=== PATIENT | female | born 1980 | race American Indian/Alaskan Native ===

== ENCOUNTER 2017-03-02 01:40 | Inpatient (IN) | payer OTHER, MEDICAID ==
[2017-03-02] MEDS ORDERED: MINERAL OIL PO PRN (02:29)
[2017-03-02] MEDS ORDERED: SUBLIMAZE IV PRN (02:29)
[2017-03-02] MEDS ORDERED: BRETHINE IVP PRN (02:29)
[2017-03-02] MEDS ORDERED: BRETHINE SUB-Q PRN (02:29)
[2017-03-02] MEDS ORDERED: ePHEDrine SULFATE IV PRN ×2 (02:29→04:27)
[2017-03-02] MEDS ORDERED: ZOFRAN IV PRN ×2 (02:29→12:05)
[2017-03-02] MEDS ORDERED: XYLOCAINE 2% INFILTRATI ONE (02:29)
[2017-03-02] MEDS ORDERED: PITOCin/NS 20 UNIT/1000ML DRIP 20 UNITS/1,000 ML BAG IV SCH (03:00)
[2017-03-02] MEDS ORDERED: PITOCin/NS 30 UNIT/500ML 30 UNITS/500 ML BAG IV SCH (03:00)
[2017-03-02 03:43] LABS: Hematocrit 33.3 % (30.3-42.9); Hemoglobin 10.7 gm/dl (10.1-14.3); Mean Corpuscular HGB Conc 32 % (30-34); Mean Corpuscular Volume 71 fl (79-97); Platelet Count 264 K/mm3 (140-440); Red Blood Count 4.71 M/mm3 (3.65-5.03); Red Cell Distribution Width 14.7 % (13.2-15.2); White Blood Count 8.1 K/mm3 (4.5-11.0)
[2017-03-02] MEDS: LACTATED RINGERS 1,000 ML IV SCH ×3 (03:45→08:24)
[2017-03-02 03:52] LABS: Mean Corpuscular Hemoglobin 23 pg (28-32)
[2017-03-02] MEDS ORDERED: ePHEDrine SULFATE ONE (03:59)
[2017-03-02] MEDS ORDERED: NARCAN 2 MG/2 ML IV PRN (04:27)
--- NOTE | 2017-03-02 04:27 | Anesthesia Consultation ---
Anesthesia Consult and Med Hx Date of service: 03/02/17 - Airway Anesthetic Teeth Evaluation: Good ROM Head & Neck: Adequate Mental/Hyoid Distance: Adequate Mallampati Class: Class II Intubation Access Assessment: Good - Pulmonary Exam CTA: Yes - Cardiac Exam Cardiac Exam: No Murmur - Pre-Operative Health Status ASA Pre-Surgery Classification: ASA2 Proposed Anesthetic Plan: Epidural - Pulmonary Hx Asthma: No COPD: No Hx Pneumonia: No - Cardiovascular System Hx Hypertension: No - Central Nervous System Hx Seizures: No Hx Psychiatric Problems: No - Endocrine Hx Renal Disease: No Hx End Stage Renal Disease: No Hx Hypothyroidism: No Hx Hyperthyroidism: No - Hematic Hx Anemia: Yes Hx Sickle Cell Disease: No - Other Systems Hx Alcohol Use: No
[2017-03-02] MEDS: fentaNYL-BUPIV 2 MCG/ML-0.125% 200 MCG/100 ML BAG EPIDURAL SCH ×3 (04:40→12:10)
--- NOTE | 2017-03-02 06:59 | History and Physical Report ---
History of Present Illness Date of examination: 03/02/17 Date of admission: 03/02/17 03:07 Chief complaint: Painful contractions History of present illness: 36 y/o at 39+4 wks presents in active labour, she is a [facility] care has been unremarkable She is GBS neg Past History Past Medical History: no pertinent history Past Surgical History: no surgical history [employer] History: herpes. denies: chlamydia, fibroids, gonorrhea, hepatitis B, hepatitis C, HIV, syphilis, trichomonas Social history: full code. denies: smoking, alcohol abuse, prescription drug abuse, IV drug use - Obstetrical History Expected Date of Delivery: 03/04/17 Actual Gestation: 39 Week(s) 5 Day(s) : 3 Para: 1 Number of Living Children: 1 Medications and Allergies Allergies Allergy/AdvReac Type Severity Reaction Status Date / Time No Known Allergies Allergy Verified 03/02/17 02:40 Active Meds: Active Medications Fentanyl (Sublimaze) 100 mcg IV Q2H PRN PRN Reason: Labor Pain Lactated Ringer's (Lactated Ringers) 1,000 mls @ 125 mls/hr IV DIRECT EFREN Last Admin: 03/02/17 04:31 Dose: 125 mls/hr Oxytocin/Sodium Chloride (Pitocin/Ns 20 Unit/1000ml Drip) 20 units in 1,000 mls @ 125 mls/hr IV DIRECT EFREN Oxytocin/Sodium Chloride (Pitocin/Ns 30 Unit/500ml) 30 units in 500 mls @ 1 mls /hr IV TITR EFREN; 1 MILLIUNITS/MIN PRN Reason: Protocol Fentanyl/Bupivacaine/Sodium Chlor (Fentanyl-Bupiv 2 Mcg/Ml-0.125%) 200 mcg in 100 mls @ 12 mls/hr EPIDURAL TITR EFREN PRN Reason: Protocol Last Admin: 03/02/17 04:40 Dose: 12 mls/hr Mineral Oil (Mineral Oil) 30 ml PO QHS PRN PRN Reason: Constipation Ondansetron HCl (Zofran) 4 mg IV Q8H PRN PRN Reason: Nausea And Vomiting Review of Systems Constitutional: no fever, no chills Cardiovascular: no chest pain, no orthopnea, no edema, no syncope, no lightheadedness, no shortness of breath Respiratory: no cough with sputum, no shortness of breath, no dyspnea on exertion Gastrointestinal: no abdominal pain, no nausea, no vomiting Genitourinary: no vaginal bleeding, no vaginal discharge, no leakage of fluid - Vital Signs Vital signs: Vital Signs Pulse BP 91 H 124/76 03/02/17 01:48 03/02/17 01:48 Temp Pulse Resp BP Pulse Ox 98.8 F 89 18 119/73 98 03/02/17 03:14 03/02/17 06:50 03/02/17 03:14 03/02/17 06:39 03/02/17 06:50 - Physical Exam Cardiovascular: Regular rate, Normal S1, Normal S2 Lungs: Positive: Clear to auscultation, Normal air movement Abdomen: Positive: normal appearance, soft. Negative: distention, tenderness, guarding, rigidity Genitourinary (Female): Positive: normal external genitalia Uterus: Positive: enlarged (EFW ~ 3400) Adnexa: both: normal Extremities: Positive: normal - Obstetrical FHR: category 1 Cervical Dilatation: 7 (Per RN exam) Results Result Diagrams: 03/02/17 03:25 Abnormal lab results 03/02/17 Range/Units 03:25 MCV 71 L (79-97) fl MCH 23 L (28-32) pg All other labs normal. Assessment and Plan A: 36 y/o at 39+5 wks in active labor -Cat 1 tracing P: -Continue present care -Anticipate - Patient Problems (1) 39 weeks gestation of Current Visit: Yes Status: Acute (2) Active labor at term Current Visit: Yes Status: Acute
--- NOTE | 2017-03-02 08:41 | Progress Note ---
Assessment and Plan A: 36 y/o at 39+5 wks in active labor -Cat 1 tracing P: -Continue present care -Anticipate - Patient Problems (1) 39 weeks gestation of Current Visit: Yes Status: Acute (2) Active labor at term Current Visit: Yes Status: Acute Subjective - Subjective Date of service: 03/02/17 Interval history: Patient now 9 cm dilated Patient reports: movement normal, contractions, no loss of fluid, no vaginal bleeding Objective - Vital Signs Vital Signs: Vital Signs - 12hr 03/02/17 03/02/17 03/02/17 01:48 03:06 03:07 Temperature Pulse Rate 91 H 84 85 Respiratory Rate Blood Pressure 124/76 119/73 O2 Sat by Pulse 98 Oximetry 03/02/17 03/02/17 03/02/17 03:11 03:14 03:16 Temperature 98.8 F Pulse Rate 85 91 H Respiratory 18 Rate Blood Pressure O2 Sat by Pulse 100 97 Oximetry 03/02/17 03/02/17 03/02/17 03:21 03:26 03:31 Temperature Pulse Rate 90 100 H 96 H Respiratory Rate Blood Pressure O2 Sat by Pulse 99 99 100 Oximetry 03/02/17 03/02/17 03/02/17 03:36 03:42 03:46 Temperature Pulse Rate 86 86 83 Respiratory Rate Blood Pressure O2 Sat by Pulse 99 100 100 Oximetry 03/02/17 03/02/17 03/02/17 03:51 03:56 04:02 Temperature Pulse Rate 86 83 110 H Respiratory Rate Blood Pressure O2 Sat by Pulse 100 99 84 Oximetry 03/02/17 03/02/17 03/02/17 04:05 04:06 04:07 Temperature Pulse Rate 87 89 91 H Respiratory Rate Blood Pressure 122/77 119/80 O2 Sat by Pulse 94 94 Oximetry 03/02/17 03/02/17 03/02/17 04:09 04:11 04:12 Temperature Pulse Rate 88 80 84 Respiratory Rate Blood Pressure 122/79 119/79 O2 Sat by Pulse 94 Oximetry 03/02/17 03/02/17 03/02/17 04:13 04:15 04:16 Temperature Pulse Rate 90 81 87 Respiratory Rate Blood Pressure 123/80 119/76 O2 Sat by Pulse 98 Oximetry 03/02/17 03/02/17 03/02/17 04:17 04:19 04:21 Temperature Pulse Rate 82 91 H 78 Respiratory Rate Blood Pressure 116/72 123/72 114/64 O2 Sat by Pulse 70 L Oximetry 03/02/17 03/02/17 03/02/17 04:23 04:25 04:26 Temperature Pulse Rate 117 H 96 H 83 Respiratory Rate Blood Pressure 102/50 74/39 91/56 O2 Sat by Pulse 98 Oximetry 03/02/17 03/02/17 03/02/17 04:29 04:30 04:31 Temperature Pulse Rate 86 96 H 93 H Respiratory Rate Blood Pressure 93/55 100/58 O2 Sat by Pulse 97 Oximetry 03/02/17 03/02/17 03/02/17 04:33 04:35 04:38 Temperature Pulse Rate 83 86 87 Respiratory Rate Blood Pressure 102/60 99/59 O2 Sat by Pulse 99 Oximetry 03/02/17 03/02/17 03/02/17 04:41 04:43 04:45 Temperature Pulse Rate 88 83 81 Respiratory Rate Blood Pressure 99/59 O2 Sat by Pulse 100 100 Oximetry 03/02/17 03/02/17 03/02/17 04:51 04:54 04:55 Temperature Pulse Rate 81 82 79 Respiratory Rate Blood Pressure 97/62 O2 Sat by Pulse 100 100 Oximetry 03/02/17 03/02/17 03/02/17 04:59 05:01 05:05 Temperature Pulse Rate 78 84 77 Respiratory Rate Blood Pressure 102/58 O2 Sat by Pulse 100 100 Oximetry 03/02/17 03/02/17 03/02/17 05:06 05:09 05:11 Temperature Pulse Rate 75 75 75 Respiratory Rate Blood Pressure 109/58 107/59 O2 Sat by Pulse 100 Oximetry 03/02/17 03/02/17 03/02/17 05:13 05:15 05:20 Temperature Pulse Rate 78 83 85 Respiratory Rate Blood Pressure 97/57 O2 Sat by Pulse 100 99 Oximetry 03/02/17 03/02/17 03/02/17 05:21 05:24 05:26 Temperature Pulse Rate 77 73 78 Respiratory Rate Blood Pressure 103/57 105/59 O2 Sat by Pulse 97 Oximetry 03/02/17 03/02/17 03/02/17 05:28 05:31 05:34 Temperature Pulse Rate 80 77 75 Respiratory Rate Blood Pressure 107/60 105/60 O2 Sat by Pulse 98 Oximetry 03/02/17 03/02/17 03/02/17 05:36 05:38 05:40 Temperature Pulse Rate 79 88 84 Respiratory Rate Blood Pressure 107/61 O2 Sat by Pulse 98 98 Oximetry 03/02/17 03/02/17 03/02/17 05:45 05:51 05:54 Temperature Pulse Rate 87 89 84 Respiratory Rate Blood Pressure 105/64 O2 Sat by Pulse 97 96 Oximetry 03/02/17 03/02/17 03/02/17 05:55 06:00 06:06 Temperature Pulse Rate 83 98 H 89 Respiratory Rate Blood Pressure O2 Sat by Pulse 96 95 96 Oximetry 03/02/17 03/02/17 03/02/17 06:09 06:10 06:16 Temperature Pulse Rate 80 79 79 Respiratory Rate Blood Pressure 103/63 O2 Sat by Pulse 97 100 Oximetry 03/02/17 03/02/17 03/02/17 06:21 06:24 06:26 Temperature Pulse Rate 80 86 94 H Respiratory Rate Blood Pressure 107/69 O2 Sat by Pulse 97 99 Oximetry 03/02/17 03/02/17 03/02/17 06:30 06:35 06:39 Temperature Pulse Rate 85 82 88 Respiratory Rate Blood Pressure 119/73 O2 Sat by Pulse 99 97 Oximetry 03/02/17 03/02/17 03/02/17 06:40 06:45 06:50 Temperature Pulse Rate 86 87 89 Respiratory Rate Blood Pressure O2 Sat by Pulse 98 98 98 Oximetry 03/02/17 03/02/17 03/02/17 06:55 06:56 07:01 Temperature Pulse Rate 77 76 72 Respiratory Rate Blood Pressure 108/67 O2 Sat by Pulse 98 97 Oximetry 03/02/17 03/02/17 03/02/17 07:05 07:10 07:16 Temperature 98.9 F Pulse Rate 81 79 77 Respiratory 20 Rate Blood Pressure 110/79 O2 Sat by Pulse 100 99 98 Oximetry 03/02/17 03/02/17 03/02/17 07:20 07:24 07:26 Temperature Pulse Rate 77 80 75 Respiratory Rate Blood Pressure 129/78 O2 Sat by Pulse 98 99 Oximetry 03/02/17 03/02/17 03/02/17 07:30 07:35 07:40 Temperature Pulse Rate 77 79 70 Respiratory Rate Blood Pressure 107/71 O2 Sat by Pulse 98 97 Oximetry 03/02/17 03/02/17 03/02/17 07:41 07:46 07:50 Temperature Pulse Rate 79 76 73 Respiratory Rate Blood Pressure O2 Sat by Pulse 96 96 97 Oximetry 03/02/17 03/02/17 03/02/17 07:54 07:55 08:00 Temperature Pulse Rate 88 84 80 Respiratory Rate Blood Pressure 111/67 O2 Sat by Pulse 97 98 Oximetry 03/02/17 03/02/17 03/02/17 08:05 08:09 08:11 Temperature Pulse Rate 83 79 87 Respiratory Rate Blood Pressure 112/75 O2 Sat by Pulse 98 99 Oximetry 03/02/17 03/02/17 03/02/17 08:15 08:20 08:25 Temperature Pulse Rate 81 97 H 79 Respiratory Rate Blood Pressure 116/80 O2 Sat by Pulse 99 100 100 Oximetry 03/02/17 03/02/17 08:30 08:35 Temperature Pulse Rate 79 78 Respiratory Rate Blood Pressure O2 Sat by Pulse 100 100 Oximetry - Exam FHR: category 1 Cervical Dilatation: 9 - Labs Labs: Abnormal Labs 03/02/17 03:25 MCV 71 L MCH 23 L Laboratory Results - last 24 hr 03/02/17 03/02/17 03:25 03:25 WBC 8.1 RBC 4.71 Hgb 10.7 Hct 33.3 MCV 71 L MCH 23 L MCHC 32 RDW 14.7 Plt Count 264 Blood Type B POSITIVE Antibody Screen TNR BRITTNEY Antibody Screen Negative
--- NOTE | 2017-03-02 11:20 | Progress Note ---
Assessment and Plan A: 36 y/o at 39+5 wks in active labor -Cat 1 tracing P: -AROMed with clear fluid -Continue present care -Anticipate - Patient Problems (1) 39 weeks gestation of Current Visit: Yes Status: Acute (2) Active labor at term Current Visit: Yes Status: Acute Subjective - Subjective Date of service: 03/02/17 Interval history: Patient now with anterior lip, still at -1 station Patient reports: movement normal, contractions, no loss of fluid, no vaginal bleeding Objective - Vital Signs Vital Signs: Vital Signs - 12hr 03/02/17 03/02/17 03/02/17 01:48 03:06 03:07 Temperature Pulse Rate 91 H 84 85 Respiratory Rate Blood Pressure 124/76 119/73 O2 Sat by Pulse 98 Oximetry 03/02/17 03/02/17 03/02/17 03:11 03:14 03:16 Temperature 98.8 F Pulse Rate 85 91 H Respiratory 18 Rate Blood Pressure O2 Sat by Pulse 100 97 Oximetry 03/02/17 03/02/17 03/02/17 03:21 03:26 03:31 Temperature Pulse Rate 90 100 H 96 H Respiratory Rate Blood Pressure O2 Sat by Pulse 99 99 100 Oximetry 03/02/17 03/02/17 03/02/17 03:36 03:42 03:46 Temperature Pulse Rate 86 86 83 Respiratory Rate Blood Pressure O2 Sat by Pulse 99 100 100 Oximetry 03/02/17 03/02/17 03/02/17 03:51 03:56 04:02 Temperature Pulse Rate 86 83 110 H Respiratory Rate Blood Pressure O2 Sat by Pulse 100 99 84 Oximetry 03/02/17 03/02/17 03/02/17 04:05 04:06 04:07 Temperature Pulse Rate 87 89 91 H Respiratory Rate Blood Pressure 122/77 119/80 O2 Sat by Pulse 94 94 Oximetry 03/02/17 03/02/17 03/02/17 04:09 04:11 04:12 Temperature Pulse Rate 88 80 84 Respiratory Rate Blood Pressure 122/79 119/79 O2 Sat by Pulse 94 Oximetry 03/02/17 03/02/17 03/02/17 04:13 04:15 04:16 Temperature Pulse Rate 90 81 87 Respiratory Rate Blood Pressure 123/80 119/76 O2 Sat by Pulse 98 Oximetry 05/03/1403/02/17 03/02/17 04:17 04:19 04:21 Temperature Pulse Rate 82 91 H 78 Respiratory Rate Blood Pressure 116/72 123/72 114/64 O2 Sat by Pulse 70 L Oximetry 03/02/17 03/02/17 03/02/17 04:23 04:25 04:26 Temperature Pulse Rate 117 H 96 H 83 Respiratory Rate Blood Pressure 102/50 74/39 91/56 O2 Sat by Pulse 98 Oximetry 03/02/17 03/02/17 03/02/17 04:29 04:30 04:31 Temperature Pulse Rate 86 96 H 93 H Respiratory Rate Blood Pressure 93/55 100/58 O2 Sat by Pulse 97 Oximetry 03/02/17 03/02/17 03/02/17 04:33 04:35 04:38 Temperature Pulse Rate 83 86 87 Respiratory Rate Blood Pressure 102/60 99/59 O2 Sat by Pulse 99 Oximetry 03/02/17 03/02/17 03/02/17 04:41 04:43 04:45 Temperature Pulse Rate 88 83 81 Respiratory Rate Blood Pressure 99/59 O2 Sat by Pulse 100 100 Oximetry 03/02/17 03/02/17 03/02/17 04:51 04:54 04:55 Temperature Pulse Rate 81 82 79 Respiratory Rate Blood Pressure 97/62 O2 Sat by Pulse 100 100 Oximetry 03/02/17 03/02/17 03/02/17 04:59 05:01 05:05 Temperature Pulse Rate 78 84 77 Respiratory Rate Blood Pressure 102/58 O2 Sat by Pulse 100 100 Oximetry 03/02/17 03/02/17 03/02/17 05:06 05:09 05:11 Temperature Pulse Rate 75 75 75 Respiratory Rate Blood Pressure 109/58 107/59 O2 Sat by Pulse 100 Oximetry 03/02/17 03/02/17 03/02/17 05:13 05:15 05:20 Temperature Pulse Rate 78 83 85 Respiratory Rate Blood Pressure 97/57 O2 Sat by Pulse 100 99 Oximetry 03/02/17 03/02/17 03/02/17 05:21 05:24 05:26 Temperature Pulse Rate 77 73 78 Respiratory Rate Blood Pressure 103/57 105/59 O2 Sat by Pulse 97 Oximetry 03/02/17 03/02/17 03/02/17 05:28 05:31 05:34 Temperature Pulse Rate 80 77 75 Respiratory Rate Blood Pressure 107/60 105/60 O2 Sat by Pulse 98 Oximetry 03/02/17 03/02/17 03/02/17 05:36 05:38 05:40 Temperature Pulse Rate 79 88 84 Respiratory Rate Blood Pressure 107/61 O2 Sat by Pulse 98 98 Oximetry 03/02/17 03/02/17 03/02/17 05:45 05:51 05:54 Temperature Pulse Rate 87 89 84 Respiratory Rate Blood Pressure 105/64 O2 Sat by Pulse 97 96 Oximetry 03/02/17 03/02/17 03/02/17 05:55 06:00 06:06 Temperature Pulse Rate 83 98 H 89 Respiratory Rate Blood Pressure O2 Sat by Pulse 96 95 96 Oximetry 03/02/17 03/02/17 03/02/17 06:09 06:10 06:16 Temperature Pulse Rate 80 79 79 Respiratory Rate Blood Pressure 103/63 O2 Sat by Pulse 97 100 Oximetry 03/02/17 03/02/17 03/02/17 06:21 06:24 06:26 Temperature Pulse Rate 80 86 94 H Respiratory Rate Blood Pressure 107/69 O2 Sat by Pulse 97 99 Oximetry 03/02/17 03/02/17 03/02/17 06:30 06:35 06:39 Temperature Pulse Rate 85 82 88 Respiratory Rate Blood Pressure 119/73 O2 Sat by Pulse 99 97 Oximetry 03/02/17 03/02/17 03/02/17 06:40 06:45 06:50 Temperature Pulse Rate 86 87 89 Respiratory Rate Blood Pressure O2 Sat by Pulse 98 98 98 Oximetry 03/02/17 03/02/17 03/02/17 06:55 06:56 07:01 Temperature Pulse Rate 77 76 72 Respiratory Rate Blood Pressure 108/67 O2 Sat by Pulse 98 97 Oximetry 03/02/17 03/02/17 03/02/17 07:05 07:10 07:16 Temperature 98.9 F Pulse Rate 81 79 77 Respiratory 20 Rate Blood Pressure 110/79 O2 Sat by Pulse 100 99 98 Oximetry 03/02/17 03/02/17 03/02/17 07:20 07:24 07:26 Temperature Pulse Rate 77 80 75 Respiratory Rate Blood Pressure 129/78 O2 Sat by Pulse 98 99 Oximetry 03/02/17 03/02/17 03/02/17 07:30 07:35 07:40 Temperature Pulse Rate 77 79 70 Respiratory Rate Blood Pressure 107/71 O2 Sat by Pulse 98 97 Oximetry 03/02/17 03/02/17 03/02/17 07:41 07:46 07:50 Temperature Pulse Rate 79 76 73 Respiratory Rate Blood Pressure O2 Sat by Pulse 96 96 97 Oximetry 03/02/17 03/02/17 03/02/17 07:54 07:55 08:00 Temperature Pulse Rate 88 84 80 Respiratory Rate Blood Pressure 111/67 O2 Sat by Pulse 97 98 Oximetry 03/02/17 03/02/17 03/02/17 08:05 08:09 08:11 Temperature Pulse Rate 83 79 87 Respiratory Rate Blood Pressure 112/75 O2 Sat by Pulse 98 99 Oximetry 03/02/17 03/02/17 03/02/17 08:15 08:20 08:25 Temperature Pulse Rate 81 97 H 79 Respiratory Rate Blood Pressure 116/80 O2 Sat by Pulse 99 100 100 Oximetry 03/02/17 03/02/17 03/02/17 08:30 08:35 08:40 Temperature Pulse Rate 79 78 86 Respiratory Rate Blood Pressure 119/74 O2 Sat by Pulse 100 100 100 Oximetry 03/02/17 03/02/17 03/02/17 08:45 08:51 08:54 Temperature Pulse Rate 83 88 81 Respiratory Rate Blood Pressure 110/81 O2 Sat by Pulse 100 100 Oximetry 03/02/17 03/02/17 03/02/17 08:55 09:00 09:05 Temperature Pulse Rate 81 90 81 Respiratory Rate Blood Pressure O2 Sat by Pulse 100 99 100 Oximetry 03/02/17 03/02/17 03/02/17 09:10 09:11 09:15 Temperature Pulse Rate 87 83 93 H Respiratory Rate Blood Pressure 129/75 O2 Sat by Pulse 72 L 95 100 Oximetry 03/02/17 03/02/17 03/02/17 09:20 09:24 09:25 Temperature Pulse Rate 81 86 84 Respiratory Rate Blood Pressure 121/74 O2 Sat by Pulse 100 96 Oximetry 03/02/17 03/02/17 03/02/17 09:28 09:29 09:31 Temperature Pulse Rate 80 90 86 Respiratory Rate Blood Pressure 124/77 O2 Sat by Pulse 94 98 Oximetry 03/02/17 03/02/17 03/02/17 09:35 09:40 09:41 Temperature 99.7 F H Pulse Rate 84 80 81 Respiratory 20 Rate Blood Pressure 120/77 O2 Sat by Pulse 100 99 100 Oximetry 03/02/17 03/02/17 03/02/17 09:46 09:50 09:54 Temperature Pulse Rate 87 89 81 Respiratory Rate Blood Pressure 112/75 O2 Sat by Pulse 99 100 Oximetry 03/02/17 03/02/17 03/02/17 09:55 10:00 10:05 Temperature Pulse Rate 86 83 91 H Respiratory Rate Blood Pressure O2 Sat by Pulse 99 98 100 Oximetry 03/02/17 03/02/17 03/02/17 10:10 10:11 10:16 Temperature Pulse Rate 85 86 80 Respiratory Rate Blood Pressure 115/77 O2 Sat by Pulse 100 100 Oximetry 03/02/17 03/02/17 03/02/17 10:20 10:24 10:25 Temperature Pulse Rate 96 H 90 85 Respiratory Rate Blood Pressure 116/82 O2 Sat by Pulse 100 98 Oximetry 03/02/17 03/02/17 03/02/17 10:31 10:35 10:39 Temperature Pulse Rate 98 H 94 H 81 Respiratory Rate Blood Pressure 120/77 O2 Sat by Pulse 100 100 Oximetry 03/02/17 03/02/17 03/02/17 10:40 10:45 10:50 Temperature Pulse Rate 86 97 H 85 Respiratory Rate Blood Pressure O2 Sat by Pulse 100 98 98 Oximetry 03/02/17 03/02/17 03/02/17 10:54 10:56 11:00 Temperature Pulse Rate 82 90 84 Respiratory Rate Blood Pressure 117/79 O2 Sat by Pulse 97 98 Oximetry 03/02/17 03/02/17 03/02/17 11:05 11:10 11:15 Temperature Pulse Rate 79 82 84 Respiratory Rate Blood Pressure 104/58 O2 Sat by Pulse 99 96 96 Oximetry - Exam FHR: category 1 Cervical Dilatation: 9.5 station: -1 - Labs Labs: Abnormal Labs 03/02/17 03:25 MCV 71 L MCH 23 L Laboratory Results - last 24 hr 03/02/17 03/02/17 03:25 03:25 WBC 8.1 RBC 4.71 Hgb 10.7 Hct 33.3 MCV 71 L MCH 23 L MCHC 32 RDW 14.7 Plt Count 264 Blood Type B POSITIVE Antibody Screen TNR BRITTNEY Antibody Screen Negative
[2017-03-02] MEDS: PITOCin/NS 20 UNIT/1000ML DRIP 20 UNITS/1,000 ML BAG IV SCH ×2 (11:54→17:20)
--- NOTE | 2017-03-02 12:04 | Procedure Note ---
OB Delivery Note - Delivery Date of Delivery: 03/02/17 Surgeon: SARA PENA Estimated blood loss: 200cc - Vaginal Delivery presentation: vertex Delivery position: OA Delivery induction: none Delivery augmentation: rupture of membranes Delivery monitor: external FHT, external uterine Route of delivery: Delivery placenta: spontaneous Delivery cord: 3 umbilical vessels Episiotomy: none Delivery laceration: 1st degree Delivery repair: vicryl Anesthesia: epidural - Infant A at 1 minute: 9 at 5 minutes: 9 Gender: Male (Del @ 11:51, 7#5 or 3321 g)
[2017-03-02] MEDS ORDERED: TYLENOL PO PRN (12:05)
[2017-03-02] MEDS ORDERED: MILK OF MAGNESIA PO PRN (12:05)
[2017-03-02] MEDS ORDERED: PHENERGAN PO PRN (12:05)
[2017-03-02] MEDS ORDERED: PHENERGAN PR PRN (12:05)
[2017-03-02] MEDS ORDERED: TUCKS PAD TP PRN (12:05)
[2017-03-02] MEDS ORDERED: BENADRYL PO PRN (12:05)
[2017-03-02] MEDS ORDERED: DERMOPLAST TP PRN (12:05)
[2017-03-02] MEDS ORDERED: LANSINOH TP PRN (12:05)
[2017-03-02] MEDS ORDERED: DULCOLAX PR PRN (12:05)
[2017-03-02] MEDS ORDERED: SENOKOT S PO SCH (13:00)
[2017-03-02] MEDS ORDERED: SODIUM CHLORIDE FLUSH SYRINGE 10 ML IV NR (13:00)
[2017-03-02] MEDS: MOTRIN PO SCH ×2 (14:47→23:26)
[2017-03-02] MEDS: NORCO 5/325 PO PRN (15:51)
[2017-03-02] MEDS: COLACE PO SCH (23:27)
[2017-03-02] MEDS: FEOSOL PO SCH (23:27)
[2017-03-03] MEDS: NORCO 5/325 PO PRN ×3 (01:08→20:18)
[2017-03-03 01:26] LABS: Hematocrit 29.5 % (30.3-42.9); Hemoglobin 9.4 gm/dl (10.1-14.3)
[2017-03-03] MEDS: MOTRIN PO SCH ×4 (06:15→20:19)
--- NOTE | 2017-03-03 08:43 | Progress Note ---
Assessment and Plan PPD# 1 s/p -Doing well P: -Continue routine care -Anticipate discharge in 24 hours - Patient Problems (1) 39 weeks gestation of Current Visit: Yes Status: Acute (2) Active labor at term Current Visit: Yes Status: Acute Subjective - Subjective Date of service: 03/03/17 Principal diagnosis: PPD# 1 Interval history: Patient seen and examined, stable doing well. No fever or chills, adequate bowel bladder function ambulating without difficulty Patient reports: appetite normal, voiding normally, pain well controlled, ambulating normally, no dizzy ambulation, no nauseated [place]: doing well Objective - Vital Signs Latest vital signs: Vital Signs Temp Pulse Pulse Resp BP BP Pulse Ox 03/03/17 01:10 98.4 F 79 18 96/53 03/02/17 20:30 98.7 F 86 18 101/61 03/02/17 16:40 98.1 F 90 18 119/67 03/02/17 13:30 98.7 F 77 16 120/64 03/02/17 13:09 76 113/69 03/02/17 12:55 94 H 97 03/02/17 12:54 77 125/69 03/02/17 12:50 84 97 03/02/17 12:45 86 98 03/02/17 12:40 83 98 03/02/17 12:39 93 H 130/65 03/02/17 12:35 98 H 98 03/02/17 12:30 86 97 03/02/17 12:25 81 98 03/02/17 12:24 85 130/72 03/02/17 12:20 85 98 03/02/17 12:15 85 98 03/02/17 12:10 88 98 03/02/17 12:09 84 122/73 03/02/17 12:05 99.3 F 92 H 20 98 03/02/17 12:04 100 H 85 03/02/17 12:00 86 98 03/02/17 11:56 91 H 98 03/02/17 11:54 88 124/74 03/02/17 11:51 99 H 100 03/02/17 11:46 83 100 03/02/17 11:41 82 99 03/02/17 11:39 88 121/78 03/02/17 11:35 79 100 05/05/17 11:30 80 100 05/05/17 11:26 79 100 05/05/17 11:24 77 104/57 05/05/17 11:20 84 100 05/05/17 11:15 84 96 05/05/17 11:10 82 104/58 96 05/05/17 11:05 79 99 05/05/17 11:00 84 98 05/05/17 10:56 90 97 05/05/17 10:54 82 117/79 05/05/17 10:50 85 98 05/05/17 10:45 97 H 98 05/05/17 10:40 86 100 05/05/17 10:39 81 120/77 05/05/17 10:35 94 H 100 05/05/17 10:31 98 H 100 05/05/17 10:25 85 98 05/05/17 10:24 90 116/82 05/05/17 10:20 96 H 100 05/05/17 10:16 80 100 05/05/17 10:11 86 100 05/05/17 10:10 85 115/77 05/05/17 10:05 91 H 100 05/05/17 10:00 83 98 05/05/17 09:55 86 99 05/05/17 09:54 81 112/75 05/05/17 09:50 89 100 05/05/17 09:46 87 99 05/05/17 09:41 81 100 05/05/17 09:40 99.7 F H 80 20 120/77 99 05/05/17 09:35 84 100 05/05/17 09:31 86 98 05/05/17 09:29 90 124/77 05/05/17 09:28 80 94 05/05/17 09:25 84 96 05/05/17 09:24 86 121/74 05/05/17 09:20 81 100 05/05/17 09:15 93 H 100 05/05/17 09:11 83 95 05/05/17 09:10 87 129/75 72 L 05/05/17 09:05 81 100 05/05/17 09:00 90 99 05/05/17 08:55 81 100 05/05/17 08:54 81 110/81 05/05/17 08:51 88 100 05/05/17 08:45 83 100 Intake and Output 05/05/17 05/06/17 05/06/17 22:59 06:59 14:59 Intake Total 605 480 Output Total 800 800 Balance -195 -320 Intake: IV 125 PITOCin/NS 20 UNIT/1000ML 125 DRIP 20 units In 1,000 ml @ 125 mls/hr IV DIRECT EFREN Rx#:[id number] Oral 240 Intake, Free Water 240 480 Output: Urine 800 800 Void 800 800 Other: Total, Intake Amount 240 Total, Output Amount 400 400 - Exam Abdomen: Present: normal appearance, soft. Absent: distention, tenderness, guarding, rigidity Uterus: Present: firm, fundal height below umbilicus Extremities: Present: normal - Labs Labs: Abnormal lab results 03/03/17 Range/Units 00:58 Hgb 9.4 L (10.1-14.3) gm/dl Hct 29.5 L (30.3-42.9) %
--- NOTE | 2017-03-03 08:44 | Discharge Summary ---
Providers - Providers Date of Admission: 03/02/17 03:07 Date of discharge: 03/04/17 Attending physician: SARA PENA Primary care physician: SARA PENA Hospitalization Reason for admission: active labor Delivery: Laceration: 1st degree Other procedures: none complications: none Discharge diagnosis: IUP at term delivered baby: male Hospital course: Uncomplicated hospital course Condition at discharge: Good Disposition: DISCHARGED TO HOME OR SELFCARE - Discharge Diagnoses (1) 39 weeks gestation of Status: Acute (2) Active labor at term Status: Acute (3) (normal spontaneous vaginal delivery) Status: Acute Plan - Discharge Medications Prescriptions: HYDROcodone/APAP 5-325 [[place] 5/325] 1 each PO Q6HR PRN #10 tablet PRN Reason: Pain Ibuprofen [Motrin 600 MG tab] 600 mg PO Q8H PRN #30 tablet PRN Reason: Pain Multivitamin with Iron [Multivitamins with Iron] 1 each PO DAILY #30 tablet - Provider Discharge Summary Activity: no sex for 6 weeks, no heavy lifting 4 weeks, no strenuous exercise Diet: routine Additional instructions: [] Smoking cessation referral if applicable(refer to patient education folder for contact #) [] Refer to [facility]'s [facility] Booklet Call your doctor immediately for: * Fever > 100.5 * Heavy vaginal bleeding ( >1 pad per hour) * Severe persistent headache * Shortness of breath * Reddened, hot, painful area to leg or breast * Drainage or odor from incision. * Keep incision clean and dry at all times and follow doctor's instructions regarding bathing/showering - Follow up plan Follow up: SARA PENA MD [Primary Care Provider] - 6 Weeks
[2017-03-03] MEDS: PRENATAL VITAMIN PO SCH (09:15)
[2017-03-03] MEDS: COLACE PO SCH ×2 (09:15→23:46)
[2017-03-03] MEDS: FEOSOL PO SCH ×2 (09:17→23:46)
--- NOTE | 2017-03-03 12:04 | Progress Note ---
Subjective Date of service: 03/03/17 Principal diagnosis: PPD# 1 Interval history: 1st day after normal vaginal delivery Patient is in the bed, comfortable. Pain is well controlled with pain meds. No pruritus . Ambulated well. No residual neurological deficit. No anesthesia complications Objective - Constitutional Vitals: Vital Signs - 12hr 03/03/17 03/03/17 01:10 09:13 Temperature 98.4 F 98.2 F Pulse Rate [ 79 74 From Monitor] Respiratory 18 18 Rate Blood Pressure 96/53 104/64 [Right Arm] - Labs CBC & Chem 7: 03/03/17 00:58 Labs: Abnormal lab results 03/03/17 Range/Units 00:58 Hgb 9.4 L (10.1-14.3) gm/dl Hct 29.5 L (30.3-42.9) %
[2017-03-04] MEDS: MOTRIN PO SCH ×2 (05:18→12:00)
[2017-03-04] MEDS: NORCO 5/325 PO PRN ×2 (06:08→12:16)
[2017-03-04] MEDS: FEOSOL PO SCH (12:00)
[2017-03-04] MEDS: PRENATAL VITAMIN PO SCH (12:00)
[2017-03-04 12:03] VITALS: BP 119/79
== END 2017-03-04 13:50 | disposition home or self-care (01) | DRG 775 ==
LOC: TRG 01:40 → LD 03:07 → OB 13:39
PROVIDERS: ADMIT Obstetrics & Gynecology Gynecology; ATTEND Obstetrics & Gynecology Gynecology
PROC: 10E0XZZ Delivery of Products of Conception, External Approach (ICD-10-PCS; principal; 2017-03-02)
PROC: 0HQ9XZZ Repair Perineum Skin, External Approach (ICD-10-PCS; 2017-03-02)
PROC: 3E0S3CZ (ICD-10-PCS; 2017-03-02)
PROC: 00HU33Z Insertion of Infusion Device into Spinal Canal, Percutaneous Approach (ICD-10-PCS; 2017-03-02)
DX: O99.02 Anemia complicating childbirth (principal); O70.0 First degree perineal laceration during delivery; Z3A.39 39 weeks gestation of pregnancy; D64.9 Anemia, unspecified; Z37.0 Single live birth
CPT/HCPCS: 36415; 85014; 85018; 85027; 86850; 86900; 86901; 99211; G0463; J2590; J7120